=== PATIENT | male | born 1950 | race Caucasian/White ===

== ENCOUNTER 2018-09-21 17:46 | Emergency (ER) | payer SELFPAY ==
[~2018-09-21] VITALS: Ht 170.2 cm; Wt 87.5 kg
--- NOTE | 2018-09-21 17:57 | NUR ---
PATIENT AMBULATED TO BED 9.
[2018-09-21 17:59] VITALS: BP 110/50
--- NOTE | 2018-09-21 18:05 | NUR ---
PT PRESENTS TO ED WITH C/O CONSTIPATON FOR APPROX 12 DAYS. PT REPORTS 5/10 INTERMITTENT ABD PAIN. DENIES NAUSEA, VOMITING OR FEVER. VSS. ERMD TO EVALUATE PT MED HX: DM RX: NONE
--- NOTE | 2018-09-21 18:42 | NUR ---
JOSEFINA STALEY EVALUATING PT AT BEDSIDE.
--- NOTE | 2018-09-21 19:17 | NUR ---
REPORT GIVEN TO CAMPBELL MONK. TRANSFER OF CARE AT THIS TIME.
--- NOTE | 2018-09-21 19:27 | NUR ---
ASSUMED CARE OF PT AT THIS TIME, PT LAYING BED POSITIONED TO COMFORT. PENDING UA, AND XRAY RESULTS.
--- NOTE | 2018-09-21 19:32 | NUR ---
Rectal exam performed per JOSEFINA STALEY with MYSELF at bedside during procedure. Patient tolerated well.
[2018-09-21 20:33] VITALS: BP 118/64
--- NOTE | 2018-09-21 20:33 | NUR ---
Patient discharged with v/s stable. Written and verbal after care instructions given and explained. Patient alert, oriented and verbalized understanding of instructions. Ambulatory with steady gait. All questions addressed prior to discharge. ID band removed. Patient advised to follow up with PMD. Rx of MIRALAX POWDER FOR SOLUTION 17GM AND DOCUSATE SODIUM 100MG given. Patient educated on indication of medication including possible reaction and side effects. Opportunity to ask questions provided and answered.
== END 2018-09-21 20:33 | disposition home or self-care (01) ==
LOC: MED 17:46
DX: K59.00 Constipation, unspecified (principal); R30.0 Dysuria; R39.15 Urgency of urination; E11.9 Type 2 diabetes mellitus without complications; Z98.890 Other specified postprocedural states
CPT/HCPCS: 74018; 81002; 99283; Q0092

== ENCOUNTER 2022-09-23 10:02 | Inpatient (IN) | payer OTHER ==
[~2022-09-23] VITALS: Ht 165.1 cm; Wt 130.6 kg
[~2022-09-23 10:02] MED LIST: GLYCOPYRROLATE 0.2 MG/ML VIAL ONE; KETOROLAC 30 MG/ML VIAL ONE; NEOSTIGMINE 1:1000 10 MG/10 ML VIAL ONE; ONDANSETRON 4 MG/2 ML VIAL ONE; PROPOFOL 200 MG/20 ML VIAL IV ONE; ROCURONIUM 50 MG/5 ML VIAL IV ONE; SEVOFLURANE 250 ML BTL INH ONE; SUCCINYLCHOLINE CHLORIDE 200 MG/10 ML VIAL IVP ONE; fentaNYL citrate 0.05 MG/ML VIAL ONE
[2022-09-23 10:11] VITALS: BP 91/57; PULSE 95; RESP 20; TEMP 98; O2SAT 99
[2022-09-23] MEDS ORDERED: KETOROLAC 15 MG/ML VIAL IVP ONE (10:45)
[2022-09-23] MEDS ORDERED: NACL 0.9% 1,000 ML IV ONE ×2 (10:45→12:05)
[2022-09-23] MEDS ORDERED: ONDANSETRON 4 MG/2 ML VIAL IVP ONE (10:45)
[2022-09-23 11:12] LABS: HEMATOCRIT 41.2 % (36-52); HEMOGLOBIN 13.9 g/dL (12.0-18.0); MEAN CORPUSCULAR HEMOGLOBIN 30 pg (27-31); MEAN CORPUSCULAR HGB CONC 34 g/dL (33-37); MEAN CORPUSCULAR VOLUME 89.8 fL (80-94); PLATELET COUNT (AUTO) 158 K/uL (140-450); RED BLOOD CELL COUNT(AUTO) 4.59 MIL/uL (4.20-6.10); RED CELL DISTRIBUTION WIDTH 13.7 % (11.6-13.7); WHITE BLOOD COUNT (AUTO) 22.1 K/uL (4.8-10.8)
[2022-09-23 11:25] LABS: ALANINE AMINOTRANSFERASE 18 U/L (12-78); ALBUMIN 3.2 g/dL (3.4-5.0); ALKALINE PHOSPHATASE 108 U/L (50-136); ANION GAP 16.3 (8-16); ASPARTATE AMINOTRANSFERASE 20 U/L (15-37); CALCIUM 8.7 mg/dL (8.5-10.1); CARBON DIOXIDE 25.1 mmol/L (21-32); CHLORIDE 97 mmol/L (98-107); CREATININE 1.5 mg/dL (0.6-1.3); POTASSIUM 4.4 mmol/L (3.5-5.1); SODIUM SERUM 134 mmol/L (136-145); TOTAL BILIRUBIN 1.4 mg/dL (0.0-1.0); TOTAL PROTEIN, SERUM 7.2 g/dL (6.4-8.2); UREA NITROGEN, BLOOD 24 mg/dL (7-18)
[2022-09-23 11:30] LABS: GLUCOSE 446 mg/dL (74-106)
[2022-09-23 11:32] LABS: LACTIC ACID 3.8 mmol/L (0.4-2.0)
[2022-09-23 11:33] LABS: LYMPHOCYTES % (MANUAL) 2 % (20-46); MONOCYTES % (MANUAL) 3 % (5-12)
[2022-09-23 11:41] LABS: INR 1.15 (0.8-1.2); PARTIAL THROMBOPLASTIN TIME 25.4 secs (22-35.6)
[2022-09-23 12:02] LABS: APPEARANCE,URINE CLEAR (CLEAR); BILIRUBIN,URINE NEGATIVE (NEGATIVE); BLOOD, URINE TRACE-I (NEGATIVE); COLOR,URINE YELLOW (YELLOW); LEUKOCYTE ESTERASE ,URINE NEGATIVE (NEGATIVE); NITRITE, URINE NEGATIVE (NEGATIVE); PROTEIN,URINE 1+ (NEGATIVE); UGLUCOSE 3+ (NEGATIVE); UROBILINOGEN,URINE 0.2 EU/dL (0.2 - 1)
[2022-09-23] MEDS ORDERED: PIPERACILLIN/TAZOBACTAM 3.375 GM in DEXTROSE 5% 50 ML IV ONE (12:05)
[2022-09-23] MEDS ORDERED: INSULIN REGULAR, HUMAN 100 UNIT/ML VIAL SUBQ ONE (12:05)
[2022-09-23 12:10] LABS: BACTERIA,URINE 0-2 /HPF (None Seen); RBC,URINE 0-5 /HPF (0-5); SQUAMOUS EPITHELIAL CELL,UR 0-3 (FEW) /LPF (0-3 (FEW)); WBC,URINE 0-5 /HPF (0-5)
[2022-09-23] MEDS ORDERED: PIPERACILLIN/TAZOBACTAM 3.375 GM VIAL IV ONE (12:53)
[2022-09-23] MEDS ORDERED: KCL 20 MEQ IN 100 mL PREMIX 200 ML IV PRN (16:05)
[2022-09-23] MEDS ORDERED: MORPHINE SULFATE 2 MG/ML SYR IVP PRN (16:05)
[2022-09-23] MEDS ORDERED: ONDANSETRON 4 MG/2 ML VIAL IVP PRN (16:05)
[2022-09-23] MEDS ORDERED: MAG SULF 2000 MG/WATER PREMIX 50 ML IV PRN (16:05)
[2022-09-23] MEDS ORDERED: HYDROcodone/APAP 5/325 MG 1 TAB TAB PO PRN (16:05)
[2022-09-23] MEDS ORDERED: POTASSIUM CHLORIDE 10 MEQ TABER PO PRN ×2 (16:05→16:15)
[2022-09-23] MEDS ORDERED: NACL 0.9% 1,000 ML IV SCH (16:05)
[2022-09-23] MEDS ORDERED: ACETAMINOPHEN 325 MG TAB PO PRN (16:05)
[2022-09-23] MEDS ORDERED: MAGNESIUM OXIDE 400 MG TAB PO PRN ×2 (16:05→16:15)
[2022-09-23] MEDS ORDERED: DEXTROSE 50% 50 ML SYR IVP PRN (16:10)
[2022-09-23] MEDS: BLOOD GLUCOSE MONITORING 1 DEV DEV FS SCH ×2 (16:31→21:10)
[2022-09-23] MEDS: NACL 0.9% 1,000 ML IV SCH (17:11)
[2022-09-23 18:00] VITALS: PULSE 113; RESP 18; O2SAT 99
[2022-09-23 19:57] VITALS: PULSE 103
[2022-09-23 20:00] VITALS: BP 122/60; PULSE 95; RESP 20; TEMP 98.4; O2SAT 95; O2SAT 96
[2022-09-23] MEDS ORDERED: metroNIDAZOLE 500 MG/NS PREMIX 100 ML IV SCH ×2 (21:00)
[2022-09-23] MEDS ORDERED: HYDROmorphone 1 MG/ML AMP IVP PRN (21:55)
[2022-09-23] MEDS: INSULIN LISPRO SLIDING SCALE 100 UNITS/ML VIAL SUBQ PRN (22:21)
[2022-09-23] MEDS: MORPHINE SULFATE 2 MG/ML SYR IVP PRN (22:50)
[2022-09-24] VITALS (9 sets, daily range): BP systolic 95–120; BP diastolic 59–66; PULSE 87–106; RESP 18–20; TEMP 97.4–98.8; O2SAT 90–100
[2022-09-24] MEDS: BLOOD GLUCOSE MONITORING 1 DEV DEV FS SCH ×5 (01:22→23:55)
[2022-09-24] MEDS ORDERED: diphenhydrAMINE 50 MG/ML VIAL IVP ONE (01:55)
[2022-09-24] MEDS: NACL 0.9% 1,000 ML IV SCH ×4 (04:45→19:40)
[2022-09-24 06:31] LABS: BASOPHILS % (AUTO) 0.2 % (0.0-2.0); HEMATOCRIT 38.7 % (36-52); HEMOGLOBIN 12.8 g/dL (12.0-18.0); LYMPHOCYTES % (AUTO) 5.7 % (20.5-51.1); MEAN CORPUSCULAR HEMOGLOBIN 30 pg (27-31); MEAN CORPUSCULAR HGB CONC 33 g/dL (33-37); MEAN CORPUSCULAR VOLUME 90.9 fL (80-94); MONOCYTES # (AUTO) 2.1 K/uL (0.8-1.0); MONOCYTES % (AUTO) 11.4 % (1.7-9.3); NEUTROPHILS # (AUTO) 15.2 K/uL (1.8-7.7); NEUTROPHILS % (AUTO) 82.7 % (42.2-75.2); PLATELET COUNT (AUTO) 148 K/uL (140-450); RED BLOOD CELL COUNT(AUTO) 4.26 MIL/uL (4.20-6.10); RED CELL DISTRIBUTION WIDTH 14.3 % (11.6-13.7); WHITE BLOOD COUNT (AUTO) 18.4 K/uL (4.8-10.8)
[2022-09-24 06:36] LABS: ALANINE AMINOTRANSFERASE 29 U/L (12-78); ALBUMIN 2.5 g/dL (3.4-5.0); ALKALINE PHOSPHATASE 89 U/L (50-136); ANION GAP 10.5 (8-16); ASPARTATE AMINOTRANSFERASE 39 U/L (15-37); CALCIUM 8.1 mg/dL (8.5-10.1); CARBON DIOXIDE 28.3 mmol/L (21-32); CHLORIDE 102 mmol/L (98-107); CREATININE 1.3 mg/dL (0.6-1.3); GLUCOSE 302 mg/dL (74-106); POTASSIUM 4.8 mmol/L (3.5-5.1); SODIUM SERUM 136 mmol/L (136-145); TOTAL BILIRUBIN 0.9 mg/dL (0.0-1.0); TOTAL PROTEIN, SERUM 6.4 g/dL (6.4-8.2); UREA NITROGEN, BLOOD 27 mg/dL (7-18)
[2022-09-24] MEDS ORDERED: LIDOCAINE 1% 500 MG/50 ML VIAL ONE (07:42)
[2022-09-24] MEDS ORDERED: BUPIVACAINE-MPF/EPI 0.25% 10 ML VIAL INJ ONE (07:43)
[2022-09-24] MEDS ORDERED: HYDROmorphone 1 MG/ML AMP IVP PRN ×2 (08:20→09:40)
[2022-09-24] MEDS ORDERED: HYDROcodone/APAP 5/325 MG 1 TAB TAB PO PRN (08:20)
[2022-09-24] MEDS ORDERED: fentaNYL citrate 0.05 MG/ML VIAL ONE (08:24)
[2022-09-24] MEDS ORDERED: PROPOFOL 200 MG/20 ML VIAL IV ONE ×2 (09:06)
[2022-09-24] MEDS ORDERED: SUCCINYLCHOLINE CHLORIDE 200 MG/10 ML VIAL IVP ONE (09:06)
[2022-09-24] MEDS ORDERED: ROCURONIUM 50 MG/5 ML VIAL IV ONE (09:07)
[2022-09-24] MEDS ORDERED: KETOROLAC 30 MG/ML VIAL ONE (09:07)
[2022-09-24] MEDS ORDERED: ONDANSETRON 4 MG/2 ML VIAL ONE (09:07)
[2022-09-24] MEDS ORDERED: NEOSTIGMINE 1:1000 10 MG/10 ML VIAL ONE (09:16)
[2022-09-24] MEDS ORDERED: GLYCOPYRROLATE 0.2 MG/ML VIAL ONE ×5 (09:16)
[2022-09-24] MEDS ORDERED: LABETALOL 20 MG/4 ML VIAL IVP PRN (09:40)
[2022-09-24] MEDS ORDERED: hydrALAZINE 20 MG/ML VIAL IVP PRN (09:40)
[2022-09-24] MEDS ORDERED: METOCLOPRAMIDE 10 MG/2 ML INJ VIAL IVP PRN (09:40)
[2022-09-24] MEDS: INSULIN LISPRO SLIDING SCALE 100 UNITS/ML VIAL SUBQ PRN ×2 (12:21→17:36)
[2022-09-24] MEDS: MORPHINE SULFATE 2 MG/ML SYR IVP PRN (23:45)
[2022-09-25] VITALS (9 sets, daily range): BP systolic 112–136; BP diastolic 61–82; PULSE 85–104; RESP 18–20; TEMP 97.8–98.5; O2SAT 94–98
[2022-09-25] MEDS: NACL 0.9% 1,000 ML IV SCH ×3 (04:41→17:13)
[2022-09-25 06:03] LABS: BASOPHILS % (AUTO) 0.3 % (0.0-2.0); EOSINOPHILS # (AUTO) 0.1 K/uL (0-0.4); HEMATOCRIT 35.6 % (36-52); HEMOGLOBIN 11.7 g/dL (12.0-18.0); LYMPHOCYTES # (AUTO) 1.5 K/uL (2.0-11.5); LYMPHOCYTES % (AUTO) 12.9 % (20.5-51.1); MEAN CORPUSCULAR HEMOGLOBIN 30 pg (27-31); MEAN CORPUSCULAR HGB CONC 33 g/dL (33-37); MEAN CORPUSCULAR VOLUME 91.1 fL (80-94); MONOCYTES # (AUTO) 1.2 K/uL (0.8-1.0); MONOCYTES % (AUTO) 10.1 % (1.7-9.3); NEUTROPHILS # (AUTO) 8.6 K/uL (1.8-7.7); NEUTROPHILS % (AUTO) 75.7 % (42.2-75.2); PLATELET COUNT (AUTO) 152 K/uL (140-450); RED CELL DISTRIBUTION WIDTH 14.5 % (11.6-13.7); WHITE BLOOD COUNT (AUTO) 11.4 K/uL (4.8-10.8)
[2022-09-25 06:38] LABS: ALANINE AMINOTRANSFERASE 51 U/L (12-78); ALBUMIN 2.3 g/dL (3.4-5.0); ALKALINE PHOSPHATASE 80 U/L (50-136); ANION GAP 10.7 (8-16); ASPARTATE AMINOTRANSFERASE 55 U/L (15-37); CALCIUM 8.1 mg/dL (8.5-10.1); CARBON DIOXIDE 28.1 mmol/L (21-32); CHLORIDE 104 mmol/L (98-107); CREATININE 1.3 mg/dL (0.6-1.3); GLUCOSE 252 mg/dL (74-106); MAGNESIUM 2.1 mg/dL (1.8-2.4); POTASSIUM 4.8 mmol/L (3.5-5.1); SODIUM SERUM 138 mmol/L (136-145); TOTAL BILIRUBIN 0.5 mg/dL (0.0-1.0); TOTAL PROTEIN, SERUM 6.2 g/dL (6.4-8.2); UREA NITROGEN, BLOOD 34 mg/dL (7-18)
[2022-09-25] MEDS: BLOOD GLUCOSE MONITORING 1 DEV DEV FS SCH ×4 (07:05→23:16)
[2022-09-25] MEDS: INSULIN LISPRO SLIDING SCALE 100 UNITS/ML VIAL SUBQ PRN ×4 (07:08→23:20)
[2022-09-25] MEDS ORDERED: TRAM-748 PO (16:20)
[2022-09-25] MEDS ORDERED: CEPH500T PO (16:23)
[2022-09-26] VITALS: BP 119/67; PULSE 86; RESP 18; TEMP 98.2; O2SAT 94
[2022-09-26] MEDS: BLOOD GLUCOSE MONITORING 1 DEV DEV FS SCH ×2 (05:07→12:00)
[2022-09-26] MEDS: INSULIN LISPRO SLIDING SCALE 100 UNITS/ML VIAL SUBQ PRN (05:11)
[2022-09-26] MEDS: NACL 0.9% 1,000 ML IV SCH (06:19)
[2022-09-26 06:27] LABS: BASOPHILS % (AUTO) 0.4 % (0.0-2.0); EOSINOPHILS # (AUTO) 0.2 K/uL (0-0.4); EOSINOPHILS % (AUTO) 2.6 % (0.0-4.0); HEMATOCRIT 34.3 % (36-52); HEMOGLOBIN 11.4 g/dL (12.0-18.0); LYMPHOCYTES # (AUTO) 1.5 K/uL (2.0-11.5); LYMPHOCYTES % (AUTO) 18.7 % (20.5-51.1); MEAN CORPUSCULAR HEMOGLOBIN 30 pg (27-31); MEAN CORPUSCULAR HGB CONC 33 g/dL (33-37); MEAN CORPUSCULAR VOLUME 91.1 fL (80-94); MONOCYTES # (AUTO) 0.8 K/uL (0.8-1.0); MONOCYTES % (AUTO) 9.7 % (1.7-9.3); NEUTROPHILS # (AUTO) 5.5 K/uL (1.8-7.7); NEUTROPHILS % (AUTO) 68.6 % (42.2-75.2); PLATELET COUNT (AUTO) 168 K/uL (140-450); RED BLOOD CELL COUNT(AUTO) 3.77 MIL/uL (4.20-6.10)
[2022-09-26 06:42] LABS: ALANINE AMINOTRANSFERASE 40 U/L (12-78); ALKALINE PHOSPHATASE 77 U/L (50-136); ANION GAP 9.7 (8-16); ASPARTATE AMINOTRANSFERASE 35 U/L (15-37); CALCIUM 7.9 mg/dL (8.5-10.1); CARBON DIOXIDE 25.5 mmol/L (21-32); CHLORIDE 106 mmol/L (98-107); CREATININE 0.9 mg/dL (0.6-1.3); GLUCOSE 213 mg/dL (74-106); POTASSIUM 4.2 mmol/L (3.5-5.1); SODIUM SERUM 137 mmol/L (136-145); TOTAL BILIRUBIN 0.4 mg/dL (0.0-1.0); TOTAL PROTEIN, SERUM 5.6 g/dL (6.4-8.2); UREA NITROGEN, BLOOD 23 mg/dL (7-18)
[2022-09-26 08:00] VITALS: BP 150/85; PULSE 87; RESP 20; TEMP 98.1; O2SAT 87; O2SAT 96
[2022-09-26 14:09] VITALS: BP 150/85; PULSE 87; RESP 20; TEMP 98.1
== END 2022-09-26 17:48 | disposition home health service (06) | DRG 854 ==
LOC: MED 10:02 → MTU 16:08
PROVIDERS: ADMIT Hospitalist; ATTEND Hospitalist
PROC: 0DNW4ZZ Release Peritoneum, Percutaneous Endoscopic Approach (ICD-10-PCS; 2022-09-24)
PROC: 0FT44ZZ Resection of Gallbladder, Percutaneous Endoscopic Approach (ICD-10-PCS; principal; 2022-09-24 07:30)
DX: A41.9 Sepsis, unspecified organism (principal); K81.0 Acute cholecystitis; K82.A2 Perforation of gallbladder in cholecystitis; Z68.42 Body mass index [BMI] 45.0-49.9, adult; K82.A1 Gangrene of gallbladder in cholecystitis; D72.829 Elevated white blood cell count, unspecified; E11.9 Type 2 diabetes mellitus without complications; E66.01 Morbid (severe) obesity due to excess calories
CPT/HCPCS: 36415; 71045; 80053; 81001; 82374; 82948; 83605; 83690; 83735; 85025; 85610; 85730; 87040; 87081; 87086; 88304; 93005; 96361; 96372; 96374; 96375; 99291; J0330; J0696; J1170; J1200; J1815; J1885; J2001; J2270; J2405; J2543; J2704; J2710; J3010; J3490; J7030; J7060; Q9967